=== PATIENT | male | born 1995 | race Caucasian/White ===

== ENCOUNTER 2018-01-16 07:27 | Inpatient (IN) | payer MEDICAID ==
[2018-01-16] MEDS ORDERED: KETOROLAC 30 MG/1 ML SDV IVP ONE (07:52)
[2018-01-16] MEDS ORDERED: HYDROmorphONE/DILAUDID 1 MG/ML INJ IVP ONE (07:52)
[2018-01-16] MEDS ORDERED: ONDANSETRON 4 MG/2 ML VIAL IVP ONE (07:52)
[2018-01-16] MEDS ORDERED: NS 1,000 ML IV ONE (07:52)
--- NOTE | 2018-01-16 07:53 | EDPHY ---
H & P Stated Complaint: Abd pain since last pm;n/v x 1 - Personal History Current Tetanus Diphtheria and Acellular Pertussis (TDAP): Yes - Medical/Surgical History Other PMH: neg per pt - Social History Smoking Status: Never smoked Constitutional: Initial Vital Signs Temperature (C) 36.7 C 01/16/18 07:29 Heart Rate 126 H 01/16/18 07:29 Respiratory Rate 18 01/16/18 07:29 Blood Pressure 112/90 H 01/16/18 07:29 O2 Sat (%) 98 01/16/18 07:29 O2 Delivery Mode Nasal Cannula O2 (L/minute) 2 Allergies/Adverse Reactions: No Known Allergies Allergy (Unverified 01/16/18 07:29) Home Medications: Medication Instructions Recorded Albuterol [Proventil Inhaler HFA 1 - 2 puffs IH Q4H PRN 01/16/18 (*)] Medical Decision Making - Diagnostics Imaging Results: Imaging Impressions Abdomen/Pelvis CT 01/16/18 07:52 Impression: 1. No evidence of urinary tract calculus. 2. Moderate thickening of the appendix with appendicoliths and periappendiceal inflammatory changes compatible with appendicitis. Findings discussed with Gaudencio Pierce MD at 9:00 hour, 01/16/2018. Imaging: Discussed imaging studies w/ scallop raker Radiologist ED Course/Re-evaluation: CHIEF COMPLAINT: Abdominal pain. HISTORY OF PRESENT ILLNESS: This patient is a 22 year old male complaining of abdominal pain and nausea. This began around 6pm last night. This morning at 4:00am, he woke with severe left sided pain. His discomfort radiates from his left flank to his groin. It has increased in severity since this morning. His pain is currently 8/10 in severity. No vomiting, dysuria, hematuria, urinary frequency or urgency, fever, chills. No prior abdominal surgery. REVIEW OF SYSTEMS: A 10 point review of systems was performed and is negative with the exception of the elements mentioned in the history of present illness. PHYSICAL EXAM: HR, BP, O2 Sat, RR. Temp noted General Appearance: Alert, well hydrated, appropriate, and non-toxic appearing. Head: Atraumatic without scalp tenderness or obvious injury Eyes: Pupils equal, round, reactive to light and accommodation, EOMI, no trauma , no injection. Ears: Clear bilaterally, no perforation, normal landmarks Nose: Atraumatic, no rhinorrhea, clear. Throat: There is no erythema or exudates, no lesions, normal tonsils, mucus membranes moist. Neck: Supple, 2+ carotid upstroke, nontender, no lymphadenopathy. Respiratory: No retractions, no distress, no wheezes, and no accessory muscle use. Lungs are clear to auscultation bilaterally. Cardiovascular: Regular rate and rhythm, no murmurs, rubs, or gallops. Bilateral carotid, radial, dorsalis pedis, and posterior tibial pulses intact. Good capillary refill all extremities. Gastrointestinal: Tenderness to left lower quadrant and left flank. Abdomen is soft, non-distended, no masses, no rebound, no guarding, no peritoneal signs. Musculoskeletal: Normal active ROM of all extremities, atraumatic. Neurological: Alert, appropriate, and interactive. The patient has normal DTRs and non-focal cranial nerves, motor, sensory, and cerebellar exam. Skin: No rashes, good turgor, no nodules on palpation. Past medical history: Denies. Past surgical history: No abdominal surgery. Family history: Noncontributory. Social history: Friend at bedside. Student at [employer]. Lives in [place]. DIFFERENTIAL DIAGNOSIS: The differential diagnosis for the patient's abdominal pain included but was not limited to appendicitis, cholecystitis, hernias, testicular torsion, gastritis, and urinary tract infection. MEDICAL DECISION MAKIN22 year old male presents with abdominal pain. Exam reveals tenderness to LLQ and left flank. Plan for labs including CBC, chemistries, UA. Plan for CT abdomen/pelvis. Plan to administer 0.5mg IV Dilaudid, 30mg IV Ketorolac, 4mg IV Zofran for symptom relief. WBC elevated at 13,000. 09:[address] Reyes, radiologist. CT abdomen pelvis positive for appendicitis. Plan for consult with general surgeon. Plan to administer 1gm Ertapenem. 10:[address] Baez, general surgeon. He accepts admission for acute appendicitis. - Data Points Laboratory Results: Laboratory Results 01/16/18 08:00 01/16/18 08:00 01/16/18 01/16/18 01/16/18 09:50 08:00 08:00 WBC 13.50 10^3/uL H 10^3/uL (3.80-9.50) RBC 5.30 10^6/uL 10^6/uL (4.40-6.38) Hgb 17.2 g/dL g/dL (13.7-17.5) Hct 46.0 % % (40.0-51.0) MCV 86.8 fL fL (81.5-99.8) MCH 32.5 pg pg (27.9-34.1) MCHC 37.4 g/dL H g/dL (32.4-36.7) RDW 11.5 % % (11.5-15.2) Plt Count 194 10^3/uL 10^3/uL (150-400) MPV 8.9 fL fL (8.7-11.7) Neut % (Auto) 83.2 % H % (39.3-74.2) Lymph % (Auto) 10.0 % L % (15.0-45.0) [place] % (Auto) 5.6 % % (4.5-13.0) Eos % (Auto) 0.4 % L % (0.6-7.6) Baso % (Auto) 0.4 % % (0.3-1.7) Nucleat RBC Rel Count 0.0 % % (0.0-0.2) Absolute Neuts (auto) 11.23 10^3/uL H 10^3/uL (1.70-6.50) Absolute Lymphs (auto) 1.35 10^3/uL 10^3/uL (1.00-3.00) Absolute Monos (auto) 0.76 10^3/uL 10^3/uL (0.30-0.80) Absolute Eos (auto) 0.06 10^3/uL 10^3/uL (0.03-0.40) Absolute Basos (auto) 0.05 10^3/uL 10^3/uL (0.02-0.10) Absolute Nucleated RBC 0.00 10^3/uL 10^3/uL (0-0.01) Immature Gran % 0.4 % % (0.0-1.1) Immature Gran # 0.05 10^3/uL 10^3/uL (0.00-0.10) Sodium 140 mEq/L mEq/L (135-145) Potassium 3.4 mEq/L L mEq/L (3.5-5.2) Chloride 103 mEq/L mEq/L (97-110) Carbon Dioxide 22 mEq/l mEq/l (22-31) Anion Gap 15 mEq/L mEq/L (8-16) BUN 13 mg/dL mg/dL (7-23) Creatinine 0.9 mg/dL mg/dL (0.7-1.3) Estimated GFR > 60 Glucose 136 mg/dL H mg/dL (70-100) Calcium 10.4 mg/dL mg/dL (8.5-10.4) Urine Color YELLOW Urine Appearance CLEAR Urine pH 7.0 (5.0-7.5) Ur Specific [place] 1.015 (1.002-1.030) Urine Protein NEGATIVE (NEGATIVE) Urine Ketones 1+ H (NEGATIVE) Urine Blood NEGATIVE (NEGATIVE) Urine Nitrate NEGATIVE (NEGATIVE) Urine Bilirubin NEGATIVE (NEGATIVE) Urine Urobilinogen NEGATIVE EU EU (0.2-1.0) Ur Leukocyte Esterase NEGATIVE (NEGATIVE) Urine RBC 1-3 /hpf /hpf (0-3) Urine WBC 1-3 /hpf /hpf (0-3) Ur Epithelial Cells NONE SEEN /lpf /lpf (NONE-1+) Urine Bacteria TRACE /hpf H /hpf (NONE SEEN) Urine Mucus TRACE /lpf /lpf (NONE-1+) Urine Glucose NEGATIVE (NEGATIVE) Medications Given: Hydromorphone HCl (Dilaudid) 0.2 mg IVP Q2HRS PRN PRN Reason: Pain, Severe Unable to Take PO Stop: 01/26/18 09:46 Last Admin: 01/16/18 13:19 Dose: 0.2 mg Lactated Ringer's (Lr) 1,000 mls @ 150 mls/hr IV CONT SENTHIL Stop: 07/15/18 09:59 Last Admin: 01/16/18 13:15 Dose: 1,000 mls Discontinued Medications Ertapenem (Invanz) 1 gm IVP EDNOW ONE PRN Reason: Protocol Stop: 01/16/18 09:07 Last Admin: 01/16/18 09:41 Dose: 1 gm Hydromorphone HCl (Dilaudid) 0.5 mg IVP EDNOW ONE Stop: 01/16/18 07:53 Last Admin: 01/16/18 08:16 Dose: 0.5 mg Sodium Chloride (Ns) 1,000 mls @ 0 mls/hr IV EDNOW ONE; Wide Open PRN Reason: Protocol Stop: 01/16/18 07:53 Last Admin: 01/16/18 08:24 Dose: 1,000 mls Ketorolac Tromethamine (Toradol) 30 mg IVP EDNOW ONE Stop: 01/16/18 07:53 Last Admin: 01/16/18 08:17 Dose: 30 mg Ondansetron HCl (Zofran) 4 mg IVP EDNOW ONE Stop: 01/16/18 07:53 Last Admin: 01/16/18 08:17 Dose: 4 mg Departure - Departure Disposition: [facility] Inpatient Acute Clinical Impression: Acute appendicitis Qualifiers: Acute appendicitis type: with localized peritonitis Qualified Code(s): K35.3 - Acute appendicitis with localized peritonitis Condition: Fair Report Scribed for: Gaudencio Pierce Report Scribed by: Carole Persaud Date of Report: 01/16/18 Time of Report: 11:29
[2018-01-16 08:15] LABS: PLATELET COUNT 194 10^3/uL (150-400)
[2018-01-16] MEDS ORDERED: ERTAPENEM 1 GM VIAL IVP ONE (09:06)
--- NOTE | 2018-01-16 09:46 | PDCONSULT ---
Cage Fighter Note: CC: abd pain HPI: 22 y/o male with LLQ pain seen in the ED by Dr. Pierce. Surgical consultation was requested when the CT showed appendicoliths. His pain started last night after dinner and was associated with nausea and emesis. He denies hematuria, dysuria, trauma. He has mild chronic constipation and has not had a BM for 2 days PMH: NKDA no surgery no medications non-smoker SH: student at [employer] FH: non-contributory ROS: pertinant negatives per HPI PE: 36.0-639-44-112/90 HEEN: no scleral icterus, no adenopathy Lungs: clear CVS: RRR w/out murmurs Abd: soft/+BS, tender to deep palpation RLQ, no guarding, no mass Rovsing's negative CT: reviewed with patient/family appendicoliths with appendiceal thickening UA: 1-3 rbc wbc > 12 Imp: acute on chronic appendicitis most likely/not able to exclude other causes of abd pain Rec: lap appendectomy recommended and he agrees. We discussed the procedure, risks and expected recovery. Informed consent was obtained He has received 1 gm Ertapenam and will be redosed pre-op SCDs void carton stapler to OR Mendez Baez MD, FACS
[2018-01-16] MEDS ORDERED: LR 1,000 ML IV SCH ×2 (10:00→16:00)
--- NOTE | 2018-01-16 10:38 | ASMTLACE ---
WALLY Acuity / Level of Answers: Yes Care: Did the patient have an inpatient admission? # of Emergency department Answers: 1-2 visits in the last 6 months Score: 4 Date Signed: 01/16/2018 10:37 AM Electronically Signed By:Paulina Gr RN
[2018-01-16] MEDS ORDERED: ONDANSETRON 4 MG/2 ML VIAL IVP PRN ×3 (10:46→15:37)
[2018-01-16] MEDS ORDERED: ERTAPENEM 1 GM VIAL IV ONE ×2 (10:47→15:00)
[2018-01-16] MEDS ORDERED: ALBUTEROL 60 PUFFS/8 GM MDI IH PRN (12:31)
[2018-01-16] MEDS: HYDROmorphONE/DILAUDID 1 MG/ML INJ IVP PRN ×2 (13:19→20:53)
[2018-01-16] MEDS ORDERED: BUPIVACAINE 0.25% 30 ML SDV ONE (13:21)
[2018-01-16] MEDS ORDERED: MIDAZOLAM 2 MG/2 ML VIAL ONE (14:09)
[2018-01-16] MEDS ORDERED: fentaNYL 100 MCG/2 ML INJ ONE (14:09)
[2018-01-16] MEDS ORDERED: PROPOFOL 200 MG/20 ML VIAL ONE ×2 (14:09→14:10)
--- NOTE | 2018-01-16 14:33 | PDANEPAE ---
ANE Past Medical History - Pulmonary History Hx Oxygen in Use at Home: No Hx Sleep Apnea: No ANE Review of Systems Review of Systems: ANE Patient History - Allergies Allergies/Adverse Reactions: No Known Allergies Allergy (Unverified 01/16/18 07:29) - Home Medications Home Medications: Albuterol [Proventil Inhaler HFA (*)] 1 - 2 puffs IH Q4H PRN 01/16/18 [Last Taken Unknown] - NPO status NPO Since - Liquids (Date): 01/16/18 NPO Since - Liquids (Time): 07:00 NPO Since - Solids (Date): 01/15/18 NPO Since - Solids (Time): 21:00 - Smoking Hx Smoking Status: Never smoked ANE Labs/Vital Signs - Labs Result Diagrams: 01/16/18 08:00 01/16/18 08:00 - Vital Signs Blood Pressure: 128/86 Heart Rate: 102 Respiratory Rate: 18 O2 Sat (%): 96 Height: 187.96 cm Weight: 77.111 kg ANE Physical Exam - Airway Neck exam: FROM Mallampati Score: Class 1 Mouth exam: normal dental/mouth exam - Pulmonary Pulmonary: no respiratory distress, no rales or rhonchi, clear to auscultation - Cardiovascular Cardiovascular: regular rate and rhythym, tachycardia - ASA Status ASA Status: I, E ANE Anesthesia Plan Anesthesia Plan: general endotracheal anesthesia
[2018-01-16] MEDS ORDERED: MEPERIDINE 25 MG/ML SYR ONE (14:38)
[2018-01-16] MEDS ORDERED: fentaNYL 100 MCG/2 ML INJ IVP PRN (14:43)
[2018-01-16] MEDS ORDERED: NALOXONE HCL 0.4 MG/ML INJ IVP PRN (14:43)
[2018-01-16] MEDS ORDERED: MEPERIDINE 25 MG/ML SYR IVP PRN (14:43)
[2018-01-16] MEDS ORDERED: METOCLOPRAMIDE 10 MG/2 ML VIAL IVP PRN ×2 (14:43→15:37)
[2018-01-16] MEDS ORDERED: LR 500 ML IV PRN (14:43)
[2018-01-16] MEDS ORDERED: PROMETHAZINE HCL 25 MG/ML INJ IVP PRN (14:43)
[2018-01-16] MEDS ORDERED: KETOROLAC 30 MG/1 ML SDV ONE (14:54)
[2018-01-16] MEDS ORDERED: LIDOCAINE 2% 5 ML SDV ONE (14:54)
[2018-01-16] MEDS ORDERED: SUGAMMADEX SODIUM 200 MG/2 ML VIAL IVP ONE (14:54)
[2018-01-16] MEDS ORDERED: METOCLOPRAMIDE 10 MG/2 ML VIAL ONE (14:54)
[2018-01-16] MEDS ORDERED: ONDANSETRON 4 MG/2 ML VIAL ONE (14:54)
[2018-01-16] MEDS ORDERED: ROCURONIUM 50 MG/5 ML VIAL ONE (14:54)
--- NOTE | 2018-01-16 15:36 | POSTOPPROG ---
Post Op Note Date of Operation: 01/16/18 Surgeon: Gary Baez (, FACS) Yarding Engineer: MARIA EUGENIA Rodriguez3 Anesthesiologist: MARIA EUGENIA Vides3 Anesthesia: GET(General Endotracheal) Pre-op Diagnosis: appendicitis Post-op Diagnosis: same Procedure: lap appendectomy Findings: acute suppurative appendicitis Inf/Abcess present in the surg proc area at time of surgery?: Yes Depth: Organ Space EBL: Minimal (10 ml) Specimen(s): appendix
[2018-01-16] MEDS ORDERED: MAGNESIUM HYDROXIDE 30 ML UDCUP PO PRN (15:37)
--- NOTE | 2018-01-16 16:48 | ASMTCMCOM ---
CM Note CM Note Notes: Patient admitted with abdominal pain and found to have acute appendicitis. He was taken to the OR today for a lap appy. He is a [employer] student and normally independent. I anticipate he will discharge soon with no needs. Date Signed: 01/16/2018 04:47 PM Electronically Signed By:Lorri Arellano RN
[2018-01-16] MEDS: IBUPROFEN 600 MG TAB PO SCH (22:34)
[2018-01-16] MEDS: SENNOSIDES/DOCUSATE SODIUM TAB PO SCH (22:35)
--- NOTE | 2018-01-17 01:43 | GOP ---
[f rep st] OPERATIVE REPORT DATE OF OPERATION: 01/16/2018 SURGEON: Gary Baez MD, FACS ELECTRONIC GLUER: ROSIE Rodriguez. ANESTHESIA: General endotracheal. ANESTHESIOLOGIST: Elen Ellison MD. PREOPERATIVE DIAGNOSIS: Acute on chronic appendicitis. POSTOPERATIVE DIAGNOSIS: Acute suppurative appendicitis with multiple appendicoliths. PROCEDURE PERFORMED: Laparoscopic appendectomy. FINDINGS: Acute suppurative appendicitis with cloudy peritoneal fluid. No evidence of gangrene or perforation. Dilatation of the midportion of the appendix and tip consistent with the appendicoliths seen on preoperative CT imaging. ESTIMATED BLOOD LOSS: 5 mL. DESCRIPTION OF PROCEDURE: After informed consent was obtained, the patient was brought to the operating room and placed under general anesthesia. The abdomen was prepped and draped in usual fashion. Before proceeding, a time-out and identification of the patient was performed. Marcaine 0.25% was used to infiltrate all incision sites. A longitudinal incision was made through the base of the umbilicus and carried through skin and subcutaneous tissues. Ventral traction was applied to the abdominal wall with a penetrating towel clamp. A Veress needle was introduced into the peritoneal cavity and position was confirmed by saline infusion. The Veress needle was withdrawn and replaced with a 5 mm bladeless trocar. A 30 degree scope was introduced and the peritoneal cavity was visualized. Patient had some cloudy fluid in the pelvis noted. The 2nd 5 mm port was placed in the suprapubic position under direct visualization and a 12 mm port was placed in the left lower quadrant under direct visualization. The appendix was mobilized and was adherent with fibrinopurulent exudate in the pelvis. The tip was dilated, as was the midportion, consistent with the appendicoliths we had seen on preoperative CT. The base of the appendix appeared relatively normal in diameter. The mesoappendix was dispatched with a Harmonic scalpel for hemostasis, and the appendix from the cecum with a single firing of the KIMBERLEY stapler. This was retrieved through the left lower quadrant port site with an Endopouch. A suction high frequency mill operator was used to irrigate the peritoneal cavity, aspirating the cloudy peritoneal fluid until the effluent was clear. The staple line appeared hemostatic as did the mesoappendix. The left lower quadrant port site was closed with a transfascial closure needle and 0 Vicryl suture. The pneumoperitoneum was evacuated. The remaining ports were removed. Subcutaneous tissues were closed with 3-0 Monocryl suture. Skin was closed with 4-0 Monocryl suture in a subcuticular fashion. Mastisol and Steri-Strips were applied. Needle, sponge, and instrument count were correct. COMPLICATIONS: None. /[id number]/MODL MTDD
[2018-01-17 05:35] LABS: PLATELET COUNT 162 10^3/uL (150-400)
[2018-01-17] MEDS: IBUPROFEN 600 MG TAB PO SCH ×3 (06:03→22:57)
--- NOTE | 2018-01-17 07:45 | SOAPPROG ---
SOAP Progress Note Assessment/Plan: Assessment:s/p lap appendectomy for suppurative appendicitis Plan: continue IV Abx/anticipate home tomorrow 01/17/18 07:44 Subjective: feeling better Objective: Vital Signs Temp Pulse Resp BP Pulse Ox 36.4 C 57 L 12 100/53 L 94 01/17/18 04:00 01/17/18 04:00 01/17/18 04:00 01/17/18 04:00 01/17/18 04:00 Laboratory Results 01/17/18 04:20 01/16/18 01/17/18 01/18/18 05:59 05:59 05:59 Intake Total 4515 Output Total 2805 Balance 1710 - Pending Discharge Pending Discharge Within 24 Hours: Yes Pending Discharge Date: 01/18/18 Pending Discharge Time: 11:00 Physical Exam - Physical Exam General Appearance: mild distress Neck: full range of motion Respiratory: chest non-tender, lungs clear, normal breath sounds Cardiac/Chest: regular rate, rhythm Abdomen: non-tender, soft, distended Skin: warm/dry Neuro/Psych: normal mood/affect, oriented x 3 ICD10 Worksheet Patient Problems: Problems Problem Status Onset Acute appendicitis Acute
[2018-01-17] MEDS ORDERED: ERTAPENEM 1 GM VIAL IV SCH ×2 (09:00→18:00)
[2018-01-17] MEDS: HYDROCODONE/APAP 5/325 TAB PO PRN ×2 (10:18→20:42)
[2018-01-17] MEDS: SENNOSIDES/DOCUSATE SODIUM TAB PO SCH ×2 (10:18→20:42)
[2018-01-18 05:12] LABS: PLATELET COUNT 188 10^3/uL (150-400)
[2018-01-18] MEDS: IBUPROFEN 600 MG TAB PO SCH (06:31)
[2018-01-18 09:34] VITALS: BP 115/67; PULSE 60; RESP 15; TEMP 98.1; O2SAT 94
[2018-01-18] MEDS ORDERED: AMOXICILLIN/CLAVULANATE POT 875/125 MG TAB PO SCH ×2 (11:15→21:00)
[2018-01-18] MEDS: SENNOSIDES/DOCUSATE SODIUM TAB PO SCH (11:26)
--- NOTE | 2018-01-18 14:08 | PDDCSUM ---
Discharge Summary Discharge Summary: DOA: 01/15/18 DOD: 01/18/18 Dx: acute suppurative appendicitis DC meds: Augmentin 875mg po BID [place] 5/325 1 po q 4 prn pain Ibuprofen 600mg po TID Senokot S 1 po BID Ezequiel presented with acute appendicits and was taken to the OR after receiving Invanz for lap appendectomy. He had a fever of 104 prior to surgery. POD #1 he had a an elevated wbc of 17K. He was kept in for additional Invanz and remained afebrile and was discharged home on POD #2 after being started on Augmentin for an additional 5 days. At the time of discharge he was afebrile and tolerating a soft diet. He will follow up in my office in one week. Mendez Baez MD, FACS
== END 2018-01-18 12:42 | disposition home or self-care (01) | DRG 343 ==
LOC: F1N 11:51 → OBSVTOIN 01-17 15:30
PROVIDERS: ADMIT Surgery; ATTEND Surgery
PROC: 0DTJ4ZZ Resection of Appendix, Percutaneous Endoscopic Approach (ICD-10-PCS; principal; 2018-01-17)
DX: K35.80 Unspecified acute appendicitis (principal)
CPT/HCPCS: G0378; J1170; J1335; J1885; J2175; J2250; J2405; J2704; J2765; J3010